=== PATIENT | female | born 1995 | race Caucasian/White ===

== ENCOUNTER 2018-10-11 17:54 | Emergency (ER) | payer MEDICAID ==
[~2018-10-11] VITALS: Wt 60.0 kg
--- NOTE | 2018-10-11 20:34 | ERD ---
ER Documentation Chief Complaint Chief Complaint 14 WEEKS WITH SPOTTING HPI 23-year-old female presents here to emergency department for complaints of vaginal spotting for 1 week, just recently found out that she was , LMP is 08/04/2018 but has irregular menstruation, 2 para 1 0. Unknown weeks of , possibly 14 weeks according to last menstruation. Complains of pelvic pain cramping pain 4/10 scale, not better or worse with anything. Patient denies any fever or chills. Patient denies any hematuria or dysuria. ROS All systems reviewed and are negative except as per history of present illness. Medications Home Meds Reported Medications [none] Unknown Strength No Conflict Check 10/11/18 Allergies Allergies: Coded Allergies: No Known Drug Allergies (Verified Allergy, Unknown, 10/11/18) PMhx/Soc Medical and Surgical Hx: pt denies Medical Hx, pt denies Surgical Hx Hx Alcohol Use: No Hx Substance Use: No Hx Tobacco Use: No Smoking Status: Never smoker FmHx Family History: No diabetes, No coronary disease, No other Physical Exam Vitals Vital Signs Date Temp Pulse Resp B/P (MAP) Pulse Ox O2 O2 Flow FiO2 Time Delivery Rate 10/11/18 98.6 59 18 117/59 99 17:57 (78) Physical Exam GENERAL: The patient is well developed and appropriate for usual state of health, in no apparent distress. CHEST: Clear to auscultation bilaterally. There are no rales, wheezes or r honchi. HEART: Regular rate and rhythm. No murmurs, clicks, rubs or gallops. No S3 or S4. ABDOMEN: Soft, nontender and nondistended. Good bowel sounds. No rebound or guarding. No gross peritonitis. No gross organomegaly or masses. No Bartholomew sign or McBurney point tenderness. BACK: No midline or flank tenderness. EXTREMITIES: Equal pulses bilaterally. There is no peripheral clubbing, cyanosis or edema. No focal swelling or erythema. Full range of motion. Grossly neurovascularly intact. NEURO: Alert and oriented. Cranial nerves 2-12 intact. Motor strength in all 4 extremities with 5/5 strength. Sensation grossly intact. Normal speech and gait. SKIN: There is no apparent rash or petechia. The skin is warm and dry. HEMATOLOGIC AND LYMPHATIC: There is no evidence of excessive bruising or lymphedema. No gross cervical, axillary, or inguinal lymphadenopathy. Vaginal: Small amount of blood in the vaginal vault, cervical os is closed, no cervical motion tenderness or adnexal tenderness noted Result Diagram: 10/11/18 2018 Results 24 hrs Laboratory Tests Test 10/11/18 20:18 10/11/18 20:23 White Blood Count 8.8 10^3/ul Red Blood Count 4.49 10^6/ul Hemoglobin 13.1 g/dl Hematocrit 39.1 % Mean Corpuscular Volume 87.1 fl Mean Corpuscular Hemoglobin 29.2 pg Mean Corpuscular Hemoglobin Concent 33.5 g/dl Red Cell Distribution Width 14.4 % Platelet Count 298 10^3/UL Mean Platelet Volume 10.4 fl Immature Granulocytes % 0.200 % Neutrophils % 60.2 % Lymphocytes % 27.4 % Monocytes % 10.8 % Eosinophils % 1.1 % Basophils % 0.3 % Nucleated Red Blood Cells % 0.0 /100WBC Immature Granulocytes # 0.020 10^3/ul Neutrophils # 5.3 10^3/ul Lymphocytes # 2.4 10^3/ul Monocytes # 1.0 10^3/ul Eosinophils # 0.1 10^3/ul Basophils # 0.0 10^3/ul Nucleated Red Blood Cells # 0.0 10^3/ul Urine Color YELLOW Urine Clarity SLIGHTLY CLOUDY Urine pH 6.0 Urine Specific Arma 1.028 Urine Ketones TRACE mg/dL Urine Nitrite NEGATIVE mg/dL Urine Bilirubin NEGATIVE mg/dL Urine Urobilinogen NEGATIVE mg/dL Urine Leukocyte Esterase NEGATIVE Pipe/ul Urine Microscopic RBC 0 /HPF Urine Microscopic WBC 2 /HPF Urine Squamous Epithelial Cells FEW /HPF Urine Mucus FEW /HPF Urine Hemoglobin NEGATIVE mg/dL Urine Glucose NEGATIVE mg/dL Urine Total Protein NEGATIVE mg/dl Beta HCG, Quantitative 45621.0 mIU/ml POC Beta HCG, Qualitative POSITIVE PROCEDURE: US Pelvis/OB. CLINICAL INDICATION: vaginal bleeding TECHNIQUE: Multiple sonographic images of the pelvis were obtained utilizing a transabdominal and endovaginal technique. The images were reviewed on a PACS w orkstation. COMPARISON: None. FINDINGS: There is a small cystic structure within the endometrium measuring 1.2 cm which would correspond to a calculated gestational age of 5 weeks and 6 days. No pole is yet visualized. There is a yolk sac seen. The ovaries are normal. No abnormal adnexal masses are present. The right ovary measures 2.9 x 1.8 cm. The left ovary measures 3.5 x 1.9 cm. No significant free fluid is present within the pelvis. RPTAT: AA IMPRESSION: Probable early intrauterine at 5 weeks and 6 days. No pole is identified. Close followup ultrasound and hCG is recommended. .Gage Mayorga MD, MD Date Time Electronically viewed and signed by .Gage Mayorga MD, MD on 10/11/2018 2 1:29 .S/ CC: CASA SHEPHERD [employer] [phone] Procedures/MDM Medical Decision Making: Patients vaginal bleeding is most likely consistent of possible threatened . Patient does not show any evidence o f hypovolemic shock. Patients hemoglobin and hematocrit is stable. There is low suspicion for ectopic . TODD results show 5-week 6-day . BetaHCG Quantitative is appropriate for .The patient is Rh+, does not need RhoGAM this time. There is no signs of symptoms of dehydration. There is low suspicion for sepsis. Patient appears well and is hemodynamically stable. Disposition: Home. Condition: Stable Instructions: Patient is advised to do bed rest, avoid heavy lifting, and avoid having sex until cleared by OB doctor. Patient is advised to follow up with OB doctor or here at the ER in 48 hours for reevaluation of symptoms, repeat beta HCG quantitative and ultrasound. Patient is advised that is symptoms are worst, severe bleeding, dizziness, severe abdominal pain, fever, worst signs and symptoms to return to the emergency department immediately. Disclaimer: Inadvertent spelling and grammatical errors are likely due to EHR/dictation software use and do not reflect on the overall quality of patient care. Also, please note that the electronic time recorded on this note does not necessarily reflect the actual time of the patient encounter. Departure Diagnosis: Primary Impression: Vaginal bleeding in patient at less than 20 weeks gestation Condition: Stable Patient Instructions: Bleeding During Early Additional Instructions: : Patient is advised to do bed rest, avoid heavy lifting, and avoid having sex until cleared by OB doctor. Patient is advised to follow up with OB doctor or here at the ER in 48 hours for reevaluation of symptoms, repeat beta HCG quantitative and ultrasound. Patient is advised that is symptoms are worst, severe bleeding, dizziness, severe abdominal pain, fever, worst signs and symptoms to return to the emergency department immediately. CASA SHEPHERD NP Oct 11, 2018 20:34
[2018-10-11 22:13] VITALS: BP 120/65; PULSE 81; RESP 19
== END 2018-10-11 22:14 | disposition home or self-care (01) ==
LOC: FTE 17:54
DX: O20.9 Hemorrhage in early pregnancy, unspecified (principal); R10.2 Pelvic and perineal pain; Z3A.14 14 weeks gestation of pregnancy
CPT/HCPCS: 36415; 76801; 76817; 81001; 81003; 81025; 84702; 85025; 86900; 86901

== ENCOUNTER 2019-05-24 21:19 | Emergency (ER) | payer MEDICAID ==
[~2019-05-24] VITALS: Ht 149.9 cm; Wt 63.5 kg
[~2019-05-24 21:19] MED LIST: BEN25 PO
[2019-05-24 21:20] VITALS: Ht 149.9 cm; Wt 63.5 kg
[2019-05-24 22:30] VITALS: BP 113/57; PULSE 84; RESP 18
== END 2019-05-24 22:31 | disposition home or self-care (01) ==
LOC: FTE 21:19
DX: O26.893 Other specified pregnancy related conditions, third trimester (principal); R21 Rash and other nonspecific skin eruption; Z3A.37 37 weeks gestation of pregnancy
CPT/HCPCS: 99282

== ENCOUNTER 2019-05-27 11:18 | Inpatient (IN) | payer MEDICAID ==
[~2019-05-27] VITALS: Ht 144.8 cm; Wt 62.7 kg
[2019-05-27 12:31] VITALS: BP 110/58; PULSE 98; RESP 18; Ht 144.8 cm; Wt 62.7 kg
[2019-05-27] MEDS ORDERED: CEFAZOLIN 2 GM/50 ML (PMX) 50 ML IVPB SCH (13:00)
[2019-05-27] MEDS ORDERED: MISOPROSTOL 200 MCG TAB PR PRN ×2 (13:00→19:30)
[2019-05-27] MEDS ORDERED: TERBUTALINE 1 MG/ML INJ SC PRN (13:00)
[2019-05-27] MEDS ORDERED: METHYLERGONOVINE 0.2 MG INJ IM PRN ×2 (13:00→19:30)
[2019-05-27] MEDS ORDERED: OXYTOCIN 30 UNITS/LR 500 ML IV PRN ×2 (13:00→19:30)
[2019-05-27] MEDS ORDERED: CARBOPROST 250 MCG INJ IM PRN ×2 (13:00→19:30)
[2019-05-27] MEDS: LACTATED RINGER'S 1,000 ML IV SCH ×2 (13:39→14:27)
[2019-05-27] MEDS ORDERED: FENTAnyl 50 MCG/ML VIAL ONE (17:57)
[2019-05-27] MEDS ORDERED: morphine SULFATE/PF (10 MG/10 ML) INJ ONE (17:57)
[2019-05-27] MEDS ORDERED: ONDANSETRON 4 MG INJ ONE (18:08)
[2019-05-27] MEDS ORDERED: OXYTOCIN 10 UNIT INJ ONE (18:08)
[2019-05-27] MEDS ORDERED: PHENYLephrine (100 MCG/ML) 10ML SYG ONE (18:10)
[2019-05-27] MEDS ORDERED: ONDANSETRON 4 MG INJ IV PRN (18:30)
[2019-05-27] MEDS ORDERED: TRIMETHOBENZAMIDE 100 MG/ML VIAL IM PRN (18:30)
[2019-05-27] MEDS ORDERED: NALBUPHINE HCL (10 MG/1 ML) INJ IV PRN (18:30)
[2019-05-27] MEDS ORDERED: NALOXONE (0.4 MG/ML) INJ IV PRN (18:30)
[2019-05-27] MEDS ORDERED: DIPHENHYDRAMINE 50 MG INJ IV PRN (18:30)
[2019-05-27] MEDS ORDERED: METOCLOPRAMIDE 10 MG INJ ONE (18:55)
[2019-05-27] MEDS ORDERED: OXYTOCIN 30 UNITS/LR 500 ML IV SCH ×2 (19:08→19:30)
[2019-05-27] MEDS ORDERED: LACTATED RINGER'S 1,000 ML IV SCH (19:08)
[2019-05-27] MEDS ORDERED: LANOLIN HPA 1 PKT TOP PRN (19:30)
[2019-05-27] MEDS ORDERED: METHYLERGONOVINE 0.2 MG TAB PO PRN (19:30)
[2019-05-27] MEDS: morphine 2 MG INJ IV PRN (20:51)
[2019-05-27 22:15] VITALS: BP 113/65; PULSE 95; RESP 20
[2019-05-27] MEDS: SENNA/DOCUSATE NA (8.6MG/50MG) TAB PO SCH (22:15)
[2019-05-28 04:00] VITALS: BP 118/68; PULSE 72; RESP 17
[2019-05-28 07:50] VITALS: BP 93/50; PULSE 86; RESP 18
[2019-05-28] MEDS: morphine 2 MG INJ IV PRN ×3 (07:50→15:51)
[2019-05-28] MEDS: SENNA/DOCUSATE NA (8.6MG/50MG) TAB PO SCH ×2 (08:38→21:34)
[2019-05-28] MEDS ORDERED: HYDROCODONE/APAP (5/325) TAB PO PRN (09:30)
[2019-05-28] MEDS ORDERED: IBUPROFEN 800 MG TAB PO PRN (09:30)
[2019-05-28 12:15] VITALS: BP 99/58; PULSE 88; RESP 18
[2019-05-28 16:15] VITALS: BP 101/57; RESP 18
[2019-05-28] MEDS: HYDROCODONE/APAP (5/325) TAB PO PRN (19:24)
[2019-05-28 19:45] VITALS: BP 114/58; PULSE 86; RESP 20
[2019-05-29 04:26] VITALS: BP 100/56; PULSE 72; RESP 20
[2019-05-29 08:00] VITALS: BP 110/65; PULSE 96; RESP 18
[2019-05-29] MEDS: HYDROCODONE/APAP (5/325) TAB PO PRN ×2 (08:15→14:49)
[2019-05-29] MEDS: SENNA/DOCUSATE NA (8.6MG/50MG) TAB PO SCH ×2 (10:06→21:20)
[2019-05-29 15:26] VITALS: BP 105/62; PULSE 95; RESP 19
[2019-05-29 19:55] VITALS: BP 110/57; PULSE 98; RESP 18
[2019-05-29] MEDS ORDERED: BISACODYL 10 MG SUPP PR PRN (22:00)
[2019-05-29] MEDS ORDERED: MAGNESIUM HYDROXIDE 30ML CUP PO PRN (22:00)
[2019-05-30 03:55] VITALS: BP 107/57; PULSE 98; RESP 19
[2019-05-30 08:00] VITALS: BP 111/58; PULSE 100; RESP 20
[2019-05-30] MEDS ORDERED: MEASLES,MUMPS,RUBELLA VACCINE INJ SC* ONE (09:00)
[2019-05-30] MEDS ORDERED: DIPHTH/TET/ACEL PERTUSS (ADULT) 0.5 ML VIAL IM* ONE (09:00)
[2019-05-30] MEDS: SENNA/DOCUSATE NA (8.6MG/50MG) TAB PO SCH (10:01)
[2019-05-30] MEDS: HYDROCODONE/APAP (5/325) TAB PO PRN (11:26)
== END 2019-05-30 18:57 | disposition home or self-care (01) | DRG 788 ==
LOC: OBT 11:18 → L-D 11:18 → OBT 12:29 → L-D 12:30 → MS1 05-28 01:13
PROVIDERS: ADMIT Obstetrics & Gynecology; ATTEND Obstetrics & Gynecology
PROC: 3E033VJ Introduction of Other Hormone into Peripheral Vein, Percutaneous Approach (ICD-10-PCS; 2019-05-27)
PROC: 10D00Z1 Extraction of Products of Conception, Low, Open Approach (ICD-10-PCS; principal; 2019-05-27 17:30)
DX: O65.5 Obstructed labor due to abnormality of maternal pelvic organs (principal); O34.211 Maternal care for low transverse scar from previous cesarean delivery; Z3A.38 38 weeks gestation of pregnancy; Z37.0 Single live birth
CPT/HCPCS: 80048; 85025; 85610; 85730; 86592; 86850; 86900; 86901; 87340; 88304; 88307; 90715; 99464; G0463; J0690; J2210; J2270; J2274; J2370; J2405; J2590; J2765; J3010; J3105; J7120